=== PATIENT | male | born 1975 | race Caucasian/White ===

== ENCOUNTER → 2021-06-13 12:06 | Outpatient (CLI) | payer BC, SELFPAY | PROVIDERS: Referring Provider Internal Medicine; Visit Provider Internal Medicine | DX: Z23 Encounter for immunization (principal) | CPT/HCPCS: 90471; 90686 ==

== ENCOUNTER 2022-01-09 17:12 | Emergency (ER) | payer OTHER, SELFPAY ==
--- NOTE | 2022-01-09 17:23 | ED.GENADULT ---
HPI - General Adult General Chief complaint: Blood/Body fluid exposure Stated complaint: Needle stick in OR Time Seen by Provider: 01/09/22 17:13 History of Present Illness HPI narrative: 46-year-old nonsmoker without any significant medical history presents with a work related blood exposure. He was in the operating room, wearing 2 sets of sterile gloves and using a solid suture do know when he accidentally poked his left index finger. There is at most a small drop of his own blood noted, he immediately washed with warm soapy water per protocol, source blood drawn and presents here for further evaluation. His hepatitis-B series is complete and tetanus is up-to-date. He has no ongoing bleeding, no pain and is otherwise well and free of complaint Related Data Allergies Allergy/AdvReac Type Severity Reaction Status Date / Time No Known Drug Allergies Allergy Verified 01/09/22 17:31 Review of Systems Constitutional Constitutional: Denies fever(s) and Denies lethargy Cardiovascular Cardiovascular: Denies chest pain and Denies dyspnea Respiratory Respiratory: Denies dyspnea Gastrointestinal Gastrointestinal: Denies abdominal pain Musculoskeletal Musculoskeletal: Denies numbness and Denies tingling Integumentary/Breasts Skin/Breast: Reports wounds Neurologic Neurologic: Denies numbness, Denies radicular pain, Denies sensory deficit and Denies tingling Hematologic/Lymphatic Hematologic/Lymphatic: Denies easy bleeding and Denies easy bruising Exam Narrative Exam Narrative: GEN: 46M, AOx3 and in no obvious distress EYES: Pupils are equal, round, and reactive to light and accommodation. Extraoccular muscles are intact bilaterally. There is no subconjunctival hemorrhage or exudate. CHEST: Lungs are clear to auscultation bilaterally and free of wheezes, rales, or rhonchi. Heart rate is regular rhythm, there are no murmurs, clicks, rubs, or gallops. There is no chest wall tenderness. ABD: Abdomen is soft and nontender. There is no guarding or rebound. Bowel sounds are normal in all 4 quadrants. There is no mass or organomegaly. EXT: Full painless ROM of all extremities with no loss of sensation or strength. Very small, puncture wound on dorsum of L index. SKIN: Warm, pink, and dry. No erythema or rash Course Orders Ordered: ED Orders 01/09/22 17:41 Alanine Aminotransferase Stat HIV 1 & 2 Ab/Ag 4th Gen Combo Stat Hep C Virus Ab w/Reflex Quant Stat Medical Decision Making Lab Data Labs: Lab Results 01/09/22 01/09/22 Range/Units 17:41 17:41 ALT 41 (<50) IU/L Hepatitis C Antibody Negative (NEGATIVE) s/c HIV 1&2 Ab/P24 Ag 4thGn Negative (NEGATIVE) MDM Narrative Medical decision making narrative: due to double gloves, solid needle, minimal exposure no PEP recommended Discharge Plan Departure Patient Disposition: Home Clinical Impression: Needle stick injury of finger of left hand Instructions: How to Handle Body Fluid 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 As we discussed your history and exam are reassuring, the risk of transmission of disease is low, HIV prophylaxis is not recommended based on this presentation.] *What to do: *Please continue to take your regular medications as directed. *Please follow up with your primary care provider in 2-3 days, call for an appointment. Let them know you were seen in the Emergency Department and that we ask that you be seen in follow up. We will electronically transmit a record of today's note if your PCP is in our system *If you do not have a primary care provider please contact the [facility] Resource line at [phone]. They will ask some questions about your medical history and help get you set up with a doctor in the community. *Return to Emergency Department if you should have any new, worsening or concerning symptoms, such as [fever greater than 101 F, shaking chills, worsening pain, persistent vomiting or other bothersome symptoms] Referrals: Miscellaneous,Doctor, [Non-Staff] - Visit Report Forms: Patient Portal/API
[2022-01-09 18:03] LABS: Alanine Aminotransferase 41 IU/L (<50)
[2022-01-09 19:18] LABS: HIV 1 & 2 Ab/Ag 4th Gen Combo NEGATIVE (NEGATIVE); Hep C Virus Ab w/Reflex Quant NEGATIVE s/c (NEGATIVE)
[2022-01-10 08:51] LABS: Hepatitis B Surf Ab Qualitativ Reactive (.)
== END 2022-01-09 17:52 | disposition home or self-care (01) ==
PROVIDERS: Emergency Provider Emergency Medicine
DX: Z77.21 Contact with and (suspected) exposure to potentially hazardous body fluids (principal); W26.8XXA Contact with other sharp object(s), not elsewhere classified, initial encounter; Y99.0 Civilian activity done for income or pay
CPT/HCPCS: 36415; 84460; 86706; 86803; 87389; 99281; 99283

== ENCOUNTER → 2022-06-01 12:10 | Outpatient (CLI) | payer OTHER, SELFPAY | PROVIDERS: Referring Provider Internal Medicine; Visit Provider Internal Medicine | DX: Z23 Encounter for immunization (principal) | CPT/HCPCS: 90471; 90686 ==

== ENCOUNTER → 2022-06-24 10:37 | Outpatient (CLI) | payer OTHER, SELFPAY ==
[2022-06-24 12:04] LABS: Influenza A - CEPHEID Flu A NEGATIVE (NEGATIVE); Influenza B - CEPHEID Flu B NEGATIVE (NEGATIVE); Respiratory Syncytial Virus Negative (Negative)
[2022-06-24 12:10] LABS: COVID-19 CEPHEID 4-PLEX PCR Negative (Negative)
== END ==
PROVIDERS: PCP Internal Medicine; Visit Provider Physician Assistant
DX: J02.9 Acute pharyngitis, unspecified (principal); R05.9 Cough, unspecified
CPT/HCPCS: 0241U; 87070

== ENCOUNTER → 2022-08-20 07:06 | Outpatient (CLI) | payer OTHER, SELFPAY ==
[2022-08-20 08:32] LABS: Hematocrit 43.8 % (41-53); Hemoglobin 14.7 g/dL (13.5-17.5); Mean Corpuscular HGB Conc 33.6 % (30-36); Mean Corpuscular Hemoglobin 30.9 PG (26-34); Platelet Count 236 X10^3/uL (150-400); Red Blood Cell Count 4.76 X10^6/uL (4.5-5.9); Red Cell Distribution Width 13.7 % (11.6-14.8); White Blood Cell Count 4.1 X10^3/uL (4.5-11.0)
[2022-08-20 08:57] LABS: Alanine Aminotransferase 50 IU/L (<50); Albumin 4.4 g/dL (3.5-5.0); Albumin Globulin Ratio 1.4 (1.0-2.8); Alkaline Phosphatase 71 U/L (38-126); Aspartate Aminotransferase 37 IU/L (17-59); BUN Creatinine Ratio 16.7 (6-22); Bilirubin Total 0.4 mg/dL (0.2-1.3); Blood Urea Nitrogen 13 mg/dL (9-20); Calcium 8.6 mg/dL (8.4-10.2); Carbon Dioxide 30 mmol/L (22-32); Chloride 102 mmol/L (98-107); Cholesterol 157 mg/dL (140-199); Estimated Glomerular Filt Rate > 60 mL/min (>60); Globulin 3.2 g/dL (1.7-4.1); Glucose 94 mg/dL (70-100); HDL Cholesterol 47 mg/dL (40-60); HEMOLYSIS < 15 (0-50); LDL Cholesterol Calculated 98 mg/dL (<100); Potassium 4.3 mmol/L (3.4-5.1); Sodium 140 mmol/L (137-145); Total Protein 7.6 g/dL (6.3-8.2); Triglycerides 58 mg/dL (35-150)
[2022-08-20 09:22] LABS: Prostate Specific Antigen Scrn 1.16 ng/mL (0.1-4.0)
[2022-08-20 09:27] LABS: TSH w/ Reflex to FT4 1.87 uIU/mL (0.47-4.68)
== END ==
PROVIDERS: PCP Internal Medicine; Referring Provider Internal Medicine; Visit Provider Internal Medicine
DX: Z00.00 Encounter for general adult medical examination without abnormal findings (principal); Z12.5 Encounter for screening for malignant neoplasm of prostate; R53.83 Other fatigue
CPT/HCPCS: 36415; 80053; 80061; 84443; 85027; G0103

== ENCOUNTER → 2022-10-31 08:09 | Outpatient (CLI) | payer OTHER, SELFPAY ==
--- NOTE | 2022-10-31 08:10 | DI.RAD.S_ITS ---
PROCEDURE: XR WRIST LT MIN 3V INDICATIONS: Left wrist pain TECHNIQUE: 4 views of the wrist were acquired. COMPARISON: None. FINDINGS: Bones: No acute fractures or dislocations. No suspicious bony lesions. Scaphoid view: No acute scaphoid fracture. Subchondral cystic changes are seen at the distal pole the scaphoid adjacent to the joint scaphoid joint. Soft tissues: No suspicious soft tissue calcifications. IMPRESSION: 1. Small lucencies adjacent to the triscaphe joint are most likely degenerative subchondral cystic changes. 2. No acute osseous abnormality. If the symptoms persist, consider cross sectional imaging such as MRI or CT for further assessment. Approved by: Gianluca Valles M.D. on 10/31/2022 at 12:01
== END ==
PROVIDERS: PCP Internal Medicine; Referring Provider Internal Medicine; Visit Provider Internal Medicine
DX: M25.532 Pain in left wrist (principal)
CPT/HCPCS: 73110

== ENCOUNTER → 2023-06-10 | Outpatient (CLI) | payer OTHER, SELFPAY | PROVIDERS: PCP Internal Medicine; Referring Provider Family Medicine; Visit Provider Family Medicine | DX: Z23 Encounter for immunization (principal) | CPT/HCPCS: 90471; 90686 ==

== ENCOUNTER → 2024-06-23 | Outpatient (CLI) | payer OTHER, SELFPAY | PROVIDERS: PCP Internal Medicine; Referring Provider Internal Medicine; Visit Provider Internal Medicine | DX: Z23 Encounter for immunization (principal) | CPT/HCPCS: 90471; 90656 ==

== ENCOUNTER 2024-07-22 09:51 | Emergency (ER) | payer OTHER, SELFPAY ==
[2024-07-22 09:52] VITALS: BP 123/71; PULSE 81; RESP 14; TEMP 36.7; O2SAT 97; BMI 23.7
--- NOTE | 2024-07-22 10:03 | ED.GENADULT ---
HPI - General Adult General Chief complaint: Upper Respiratory Symptoms Stated complaint: flu symptoms Time Seen by Provider: 07/22/24 10:02 Source: patient Mode of arrival: Ambulatory History of Present Illness HPI narrative: 48-year-old gentleman with no significant medical history presents complaining of fever, myalgias, headache and general misery then has been increasing over the last at least 36 hours. Multiple family members with similar findings. Comes in to discuss diagnosis in light of need to return to work. Cough at this point is minimal and nonproductive. No wheezing, no palpitations Related Data Previous Rx's Medication Instructions Recorded benzonatate 200 mg capsule 200 mg PO BID-TID PRN cough #14 07/22/24 caps Allergies Allergy/AdvReac Type Severity Reaction Status Date / Time No Known Drug Allergies Allergy Verified 07/22/24 09:59 Review of Systems Review of Systems Narrative: Pertinent positive and negative findings as per HPI Patient History Medical History (Updated 07/22/24 @ 11:09 by Amy Smith MD) History of colonic polyps Primary osteoarthritis, left wrist Left wrist pain BPH (benign prostatic hyperplasia) (~1999) Cluster headache syndrome (~1997) Sore throat (viral) Surgical History History of cystoscopy (~1999) Social History Smoking Status: Never smoker Smoking Status: Never smoker Exam Initial Vital Signs Initial Vital Signs: Vital Signs Temperature 98.1 F 07/22/24 09:52 Pulse Rate 81 07/22/24 09:52 Respiratory Rate 14 07/22/24 09:52 Blood Pressure 123/71 07/22/24 09:52 Pulse Oximetry 97 07/22/24 09:52 Oxygen Delivery Method Room Air 07/22/24 09:52 General: Alert appropriate in no acute distress Respiratory: Able to speak in full sentences, no obvious respiratory distress, no rhonchi, no wheezing, no retractions Cardiac: Regular rate and rhythm, no murmurs no tachycardia Skin: No obvious rashes, warm and dry Neurologic: Grossly intact no obvious asymmetries or abnormalities Psych: appropriate insight and affect, cooperative Course Orders Ordered: ED Orders 07/22/24 09:57 Covid-19 + FLU A/B + RSV - PCR Stat Vital Signs Vital signs: Vital Signs - 8 hr 07/22/24 09:52 Temperature 98.1 F Pulse Rate 81 Respiratory Rate 14 Blood Pressure 123/71 Pulse Oximetry 97 Oxygen Delivery Method Room Air Medical Decision Making Lab Data Labs: Lab Results 07/22/24 Range/Units 09:57 SARS-CoV-2 (PCR) Negative (Negative) Influenza A (RT-PCR) Flu a positive H (NEGATIVE) Influenza B (RT-PCR) Flu b negative (NEGATIVE) RSV (PCR) Negative (Negative) MDM Narrative Medical decision making narrative: 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 Discussed use of ibuprofen and Tylenol for myalgias fever, Tessalon to help with cough along with dextromethorphan if that does develop. Discharge Plan Departure Patient Disposition: Home Clinical Impression: Upper respiratory infection, viral, Influenza A Instructions: DI for Influenza -- Adult Activity Restrictions/Additional Instructions: Thank you for coming in today, I am sorry that you are sick today of all days. Your exam is quite reassuring. I do not hear any rhonchi, wheezing or consolidated findings to suggest a bacterial pneumonia. Your symptoms are quite suspicious for influenza. I will let you know the results of the panel that we did that will include COVID, influenza a and B and RSV. You are considered not contagious by day 5 of symptom onset. Using 400 mg of ibuprofen (2 [id number] pills) and 1 Tylenol every 6 hours can be very helpful in controlling pain. Dextromethorphan containing cough medicine can be helpful. I have given you a prescription for Tessalon to help if the cough becomes too intrusive. We discussed tamsulosin and decided against using medications that are likely going to cause more nausea and not make a significant difference in your overall course of disease If you find that you are getting worse or develop any new symptoms, please feel free to return to the emergency department for further evaluation. Prescriptions: New benzonatate 200 mg capsule 200 mg PO BID-TID PRN (Reason: cough) Qty: 14 0RF Referrals: Arnoldo Kaur MD [Primary Care Provider] - Stand Alone Forms: Patient Portal/API/Survey
[2024-07-22 10:44] LABS: Influenza A - CEPHEID Flu A POSITIVE (NEGATIVE); Influenza B - CEPHEID Flu B NEGATIVE (NEGATIVE); Respiratory Syncytial Virus Negative (Negative)
[2024-07-22 10:54] LABS: COVID-19 CEPHEID 4-PLEX PCR Negative (Negative)
== END 2024-07-22 10:23 | disposition home or self-care (01) ==
PROVIDERS: Emergency Provider Emergency Medicine; PCP Internal Medicine
DX: J10.1 Influenza due to other identified influenza virus with other respiratory manifestations (principal)
CPT/HCPCS: 0241U; 99281; 99282

== ENCOUNTER 2024-11-11 16:17 | Emergency (ER) | payer OTHER, SELFPAY ==
[2024-11-11 16:28] VITALS: BP 124/61; PULSE 60; RESP 18; TEMP 36.3; O2SAT 99; BMI 23.7
--- NOTE | 2024-11-11 16:59 | ED_ITS ---
<Statement entered by Pj Benjamin DO - 11/11/24 17:20> Dr. Benjamin: I was immediately available in the department for consultation. I did not actually see the patient. HPI - Recheck/Abnormal Lab/Rx General Chief Complaint: Recheck/Abnormal Lab/Rx Stated Complaint: needle stick Time Seen by Provider: 11/11/24 16:30 Source: patient Mode of arrival: Ambulatory History of Present Illness HPI narrative: 49-year-old male without significant medical history presents with a work- related blood exposure. 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 Patient's finger did bleed. He immediately washed with soapy water per protocol. The sources blood has already been drawn and results are negative. The source has no HIV or hepatitis history in his asymptomatic. Patient has a complete hepatitis B series. He has not sure when his last tetanus was but thinks it may need to be updated. Patient has no ongoing bleeding of the finger and no pain in his otherwise feeling well and has no complaints. Related Data Previous Rx's Medication Instructions Recorded benzonatate 200 mg capsule 200 mg PO BID-TID PRN cough #14 07/22/24 caps Allergies Allergy/AdvReac Type Severity Reaction Status Date / Time No Known Drug Allergies Allergy Verified 07/22/24 09:59 Review of Systems Review of Systems ROS Unobtainable: All systems reviewed & are unremarkable except as noted in HPI and below Patient History Medical History (Updated 11/11/24 @ 17:01 by Madhavi Echavarria PA-C) History of colonic polyps Primary osteoarthritis, left wrist Left wrist pain BPH (benign prostatic hyperplasia) (~1999) Cluster headache syndrome (~1997) Sore throat (viral) Surgical History History of cystoscopy (~1999) Social History Smoking Status: Never smoker Smoking Status: Never smoker Exam Narrative Exam Narrative: GENERAL: Well-developed, well-nourished, appears stated age. In no acute distress HEAD: Atraumatic. Normocephalic. EYES: Pupils equal round and reactive. Extraocular motions intact. No scleral icterus. No injection or drainage. ENT: Nose without bleeding, purulent drainage. Airway patent. NECK: Trachea midline. Non tender RESPIRATORY: Respiratory rate and effort normal EXTREMITIES: No edema or joint tenderness. NEURO: AOx3. SKIN: No rash or erythema of visible areas. No bleeding Initial Vital Signs Initial Vital Signs: Vital Signs Temperature 97.3 F L 11/11/24 16:28 Pulse Rate 60 11/11/24 16:28 Respiratory Rate 18 11/11/24 16:28 Blood Pressure 124/61 11/11/24 16:28 Pulse Oximetry 99 11/11/24 16:28 Oxygen Delivery Method Room Air 11/11/24 16:28 Course Vital Signs Vital signs: Vital Signs - 8 hr 11/11/24 16:28 Temperature 97.3 F L Pulse Rate 60 Respiratory Rate 18 Blood Pressure 124/61 Pulse Oximetry 99 Oxygen Delivery Method Room Air MDM - Recheck/Abnormal Lab/Rx MDM Narrative Medical decision making narrative: Patient here for needlestick injury which occurred in the OR while working this morning. The source's blood has been drawn and results are negative for HIV and hepatitis B/C. Source is asymptomatic and low risk. Patient is fully vaccinated against hepatitis-B. Since the source has been identified and her blood tests are negative, a very low risk needlestick and patient declines PEP. Patient does need his tetanus updated so this was given today. Patient blood drawn for HIV and hepatitis, [facility] No additional workup or treatment needed. 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 As we discussed your history and exam are reassuring, the risk of transmission of disease is low, HIV prophylaxis is not recommended based on this presentation. Your tetanus shot was updated today. Follow up as needed. Prescriptions: No Action benzonatate 200 mg capsule 200 mg PO BID-TID PRN (Reason: cough) Qty: 14 0RF Referrals: Arnoldo Kaur MD [Primary Care Provider] - Stand Alone Forms: Patient Portal/API/Survey
[2024-11-11] MEDS: TET,DIPH,PERTUSS(ACELL),VAC/PF 0.5 ML SYRINGE IM (17:04)
[2024-11-11 17:23] LABS: Alanine Aminotransferase 42 IU/L (<50)
[2024-11-11 18:11] LABS: Hepatitis B Surface Antigen NEGATIVE s/c (NEGATIVE)
[2024-11-11 18:15] LABS: HIV 1 & 2 Ab/Ag 4th Gen Combo NEGATIVE (NEGATIVE); Hep C Virus Ab w/Reflex Quant NEGATIVE s/c (NEGATIVE)
[2024-11-13 03:09] LABS: Hepatitis B Surf Ab Qualitativ Reactive (.)
== END 2024-11-11 17:10 | disposition home or self-care (01) ==
PROVIDERS: Emergency Provider Physician Assistant; PCP Internal Medicine
DX: Z77.21 Contact with and (suspected) exposure to potentially hazardous body fluids (principal); Z23 Encounter for immunization; Y99.0 Civilian activity done for income or pay; W46.1XXA Contact with contaminated hypodermic needle, initial encounter
CPT/HCPCS: 90471; 99283; 90715